=== PATIENT | male | born 1985 | race Hispanic/Latino ===

== ENCOUNTER → 2017-01-31 | Outpatient (CLI) | payer OTHER ==
--- NOTE | 2017-02-01 15:26 | SLEEPCENT ---
DATE OF PROCEDURE: 01/31/2017 REQUESTING PROVIDER: Es Echeverria NP INTERPRETATION: Nocturnal polysomnography was performed for assessment of sleep physiology in this patient with a history of excessive somnolence, morning headaches and nonrestorative sleep. 7 hours and 6 minutes of data were reviewed. There were 396 minutes of sleep identified. Sleep latency was normal at 14 minutes. Rapid eye movement (REM) latency was short at 47 minutes. Sleep architecture was fairly well preservecd. There were five REM periods appreciated. Overall sleep efficiency was 94.2%. The patient's electrocardiogram (EKG) showed a sinus rhythm with an average heart rate of 56 beats per minute. Some rate variability was seen. Rate ranged 50 to 90 beats per minute. Electroencephalogram (EEG) showed mild coarsening in background. No focal events. Normal waveforms for awake and sleep. There were only two respiratory events identified of 10 seconds in duration or greater for an apnea-hypopnea index of 0.3. Significant snoring was however noted and arousals from respiratory evefnts, when arousals from snoring were included, occurred 1.1 times per hour. There were a few oxygen desaturations below 90%. Limb activity was quite prominent over the course of the study. There were at least three trains of 30 events. The limb movement arousal index was 8.9. IMPRESSION: 1. Periodic limb movement disorder (G47.61). Limb movement arousal index of 8.9. 2. Snoring. RECOMMENDATIONS: Interventions to reduce the frequency of arousals from limb activity should improve the quality of the patient's sleep.
== END ==
LOC: M SLEEP 18:56
PROVIDERS: ATTEND Nurse Practitioner Adult Health
DX: G47.30 Sleep apnea, unspecified (principal)

== ENCOUNTER 2018-12-15 16:48 | Emergency (ER) | payer OTHER ==
[~2018-12-15] VITALS: Ht 167.6 cm; Wt 79.4 kg
--- NOTE | 2018-12-15 18:12 | REPVR ---
PROCEDURE INFORMATION: Exam: US Scrotum Exam date and time: 12/15/2018 5:40 PM Clinical history: 33 years old, male; Scrotum pain; Prior surgery; Surgery date: 6+ months; Surgery type: Vasectomy; Additional info: Left testicular pain starting yesterday TECHNIQUE: Imaging protocol: Real-time ultrasound of the scrotum and contents with color Doppler and image documentation. COMPARISON: No relevant prior studies available. FINDINGS: Right Testicle: Normal. Measures 4.5 x 2.4 x 2.9 cm. No mass. No torsion. Normal vascular flow. Left Testicle: Normal. Measures 3.9 x 2.1 x 2.6 cm. No mass. No torsion. Normal vascular flow. Epididymides: Subcentimeter cysts in the left epididymal head. Increased flow in the epididymal body and tail on the left may indicate mild epididymitis. Otherwise normal. Scrotum: Normal. IMPRESSION: Possible epididymitis on the left. Otherwise normal scrotal ultrasound. Electronically signed by: Keith Cervantes On 12/15/2018 18:12:21 PM
[2018-12-15] MEDS ORDERED: LIDOCAINE 1% SDV 5 ML VIAL DILUENT ONE (18:30)
[2018-12-15] MEDS ORDERED: PERCOCET 5MG/325MG TAB PO ONE (18:30)
[2018-12-15] MEDS ORDERED: DOXYCYCLINE HYCLATE 100 MG TAB PO ONE (18:30)
[2018-12-15] MEDS ORDERED: cefTRIAXone SOD 250 MG VIAL (J0696) IM ONE (18:30)
[2018-12-15] MEDS ORDERED: DOXY100C37 PO (18:42)
[2018-12-15] MEDS ORDERED: NORC1TAB7 PO (18:42)
[2018-12-15 19:05] VITALS: BP 117/55
[2018-12-15 20:04] LABS: CHLAMYDIA DNA AMPLIFICATION NEGATIVE (NEGATIVE); GC DNA AMPLIFICATION NEGATIVE (NEGATIVE)
== END 2018-12-15 19:06 | disposition home or self-care (01) ==
LOC: M ED 16:48
DX: N45.1 Epididymitis (principal); F17.200 Nicotine dependence, unspecified, uncomplicated
CPT/HCPCS: 76870; 81001; 87661; 93976; 96372; 99283; J0696

== ENCOUNTER 2018-12-18 13:27 | Emergency (ER) | payer OTHER ==
[~2018-12-18] VITALS: Ht 167.6 cm; Wt 82.4 kg
[~2018-12-18 13:27] MED LIST: DOXY100C37 PO; NORC1TAB7 PO
[2018-12-18 14:19] LABS: BASO # 0.1 10^3/uL (0.0-0.2); BASO % 0.8 % (0.0-1.0); EOS # 0.3 10^3/uL (0.0-0.5); EOS % 4.7 % (0.0-3.0); HEMATOCRIT 48.7 % (42.0-52.0); HEMOGLOBIN 16.2 g/dl (13.5-17.5); LYMPH # 1.7 10^3/uL (1.5-5.0); LYMPH % 22.9 % (24.0-44.0); MEAN CORPUSCULAR HEMOGLOBIN 31.2 pg (27.0-33.0); MEAN CORPUSCULAR HGB CONC 33.3 g/dl (32.0-36.5); MEAN CORPUSCULAR VOLUME 93.7 fl (80.0-96.0); MONO # 0.6 10^3/uL (0.0-0.8); MONO % 7.8 % (0.0-5.0); NEUTROPHILS # 4.6 10^3/uL (1.5-8.5); NEUTROPHILS % 63.7 % (36.0-66.0); PLATELET COUNT, AUTOMATED 228 10^3/uL (150-450); WHITE BLOOD COUNT 7.2 10^3/uL (4.0-10.0)
[2018-12-18 14:37] LABS: ALBUMIN 3.8 GM/DL (3.2-5.2); ALT/SGPT 61 U/L (12-78); BILIRUBIN,DIRECT 0.2 MG/DL (0.0-0.2); BILIRUBIN,TOTAL 0.8 MG/DL (0.2-1.0); BLOOD UREA NITROGEN 19 MG/DL (7-18); CARBON DIOXIDE LEVEL 27 MEQ/L (21-32); CHLORIDE LEVEL 106 MEQ/L (98-107); CREATININE FOR GFR 1.26 MG/DL (0.70-1.30); GLOMERULAR FILTRATION RATE > 60.0 (>60); GLUCOSE, FASTING 106 MG/DL (70-100); LIPASE 105 U/L (73-393); POTASSIUM SERUM 4.2 MEQ/L (3.5-5.1); SODIUM LEVEL 141 MEQ/L (136-145)
[2018-12-18 16:53] LABS: CHLAMYDIA DNA AMPLIFICATION NEGATIVE (NEGATIVE); GC DNA AMPLIFICATION NEGATIVE (NEGATIVE)
[2018-12-18 17:05] VITALS: BP 131/69
--- NOTE | 2018-12-18 17:10 | REP ---
RIGHT UPPER QUADRANT ULTRASOUNDS: Real-time sonographic evaluation of the right upper quadrant was performed. Study is limited due to bowel gas and patient has had a recent meal. The gallbladder is contracted. No definite gallstones are seen. There is no free fluid. There is no intrahepatic or extrahepatic biliary dilatation. Common bile duct measuring 3 mm. The liver is grossly unremarkable. No liver mass is seen. Pancreas is not well seen due to overlying bowel gas. The right kidney demonstrates no hydronephrosis. Length of the kidney is 10.6 cm. IMPRESSION: Somewhat limited exam. Patient had a recent meal. Gallbladder is contracted, otherwise negative right upper quadrant ultrasound. Electronically Signed by Dieudonne Gutierrez MD 12/18/2018 11:50 P
== END 2018-12-18 17:06 | disposition home or self-care (01) ==
LOC: M ED 13:27
DX: R10.84 Generalized abdominal pain (principal); R19.7 Diarrhea, unspecified; Z87.438 Personal history of other diseases of male genital organs; Z98.890 Other specified postprocedural states; F17.290 Nicotine dependence, other tobacco product, uncomplicated; Z83.3 Family history of diabetes mellitus; Z84.1 Family history of disorders of kidney and ureter; Z79.899 Other long term (current) drug therapy

== ENCOUNTER 2018-12-22 10:10 | Emergency (ER) | payer OTHER ==
[~2018-12-22] VITALS: Ht 167.6 cm; Wt 79.7 kg
[2018-12-22 10:10] VITALS: BP 145/93
== END 2018-12-22 11:19 | disposition home or self-care (01) ==
LOC: M ED 10:10
DX: R19.7 Diarrhea, unspecified (principal)

== ENCOUNTER 2020-06-17 10:22 | Emergency (ER) | payer OTHER ==
[~2020-06-17] VITALS: Ht 167.6 cm; Wt 90.7 kg
[2020-06-17] MEDS ORDERED: LUNE2TAB23 PO (10:31)
--- NOTE | 2020-06-17 11:23 | REP ---
INDICATION: testicular pain COMPARISON: None. TECHNIQUE: Gutierrez scale and color Doppler evaluation using linear and curved array transducer with color Doppler evaluation. FINDINGS: The testicles and epididymi are relatively normal in contour, size, echogenicity, vascularity and overall appearance. There is no evidence for intratesticular mass lesion, infectious/inflammatory process, or torsion. Incidental left epididymal head cysts measuring up to 2 mm along with small bilateral hydroceles noted. No varicoceles are identified. Right testicle measures 4.5 x 2.1 x 3.2 cm. Left testicle measures 4.1 x 2.1 x 3.3 cm. IMPRESSION: No obvious acute scrotal pathology. As above. <Electronically signed by Shaheen Hardin > 06/17/20 0622
[2020-06-17] MEDS ORDERED: IBUP-1022 PO (11:33)
[2020-06-17] MEDS ORDERED: DOXY100C37 PO (11:33)
[2020-06-17] MEDS ORDERED: LIDOCAINE 1% SDV 5ML VIAL DILUENT ONE (11:35)
[2020-06-17] MEDS ORDERED: cefTRIAXone 500MG VIAL (J0696 PER 250MG) IM ONE (11:35)
[2020-06-17 12:10] VITALS: BP 132/84
[2020-06-17 12:59] LABS: CHLAMYDIA DNA AMPLIFICATION NEGATIVE (NEGATIVE); GC DNA AMPLIFICATION NEGATIVE (NEGATIVE)
== END 2020-06-17 12:19 | disposition home or self-care (01) ==
LOC: M ED 10:22
DX: N45.1 Epididymitis (principal)
CPT/HCPCS: 76870; 81001; 87661; 93976; 96372; 99283; J0696

== ENCOUNTER → 2021-08-11 | Outpatient (REF) ==
[~2021-08-11] MED LIST changes: +DOXY-443 PO; -DOXY100C37 PO; +IBUP-1022 PO; +LUNE2TAB23 PO
== END ==
LOC: M PLALAB 12:50
PROVIDERS: ATTEND Internal Medicine
DX: M25.562 Pain in left knee (principal); M54.50 Low back pain, unspecified